=== PATIENT | male | born 1985 | race Two or more races ===

== ENCOUNTER 2020-05-13 23:39 | Emergency (ER) | payer SELFPAY ==
[~2020-05-13] VITALS: Ht 185.4 cm; Wt 88.0 kg
[2020-05-13 23:50] VITALS: BP 137/90
== END 2020-05-14 00:16 | disposition home or self-care (01) ==
LOC: ER 23:54
DX: F12.10 Cannabis abuse, uncomplicated (principal); R07.89 Other chest pain
CPT/HCPCS: 99281